=== PATIENT | male | born 1985 | race Caucasian/White ===

== ENCOUNTER 2021-07-22 15:30 | Emergency (ER) | payer OTHER ==
[2021-07-22 15:56] VITALS: BP 117/80; PULSE 67; TEMP 98.4; BMI 25.7
[2021-07-24 19:06] LABS: SARS-CoV-2 NAA Detected (Not Detected)
== END 2021-07-22 17:44 | disposition home or self-care (01) ==
LOC: JER 15:30
DX: U07.1 COVID-19 (principal); R05.1 Acute cough; R09.81 Nasal congestion
CPT/HCPCS: 87804; 99283-25; C9803; U0003; U0005

== ENCOUNTER 2021-08-11 09:23 | Emergency (ER) | payer OTHER ==
[2021-08-11 09:41] VITALS: TEMP 97.6; BMI 25.7
[2021-08-11 11:48] LABS: BASO % 0.6 % (0-2.0); EOS % 1.9 % (0-4.5); HEMATOCRIT 42.5 % (35.4-49); HEMOGLOBIN 14.4 GM/dL (11.7-16.9); MCHC 33.8 g/dl (32.0-35.9); MEAN PLT VOLUME 8.1 fl (7.5-11.1); NEUT % 64.5 % (42.8-82.8); PLATELET COUNT 172 10^3/uL (134-434); RBC 5.31 M/mm3 (4.00-5.60); RDW 12.9 % (11.9-15.9); WHITE BLOOD COUNT 4.8 K/mm3 (4.0-10.0)
[2021-08-11 12:02] LABS: CHLORIDE 105 mmol/L (98-107); SODIUM 140 mmol/L (136-145)
[2021-08-11 12:04] LABS: ALBUMIN 4.3 g/dl (3.4-5.0); ANION GAP 6 MMOL/L (8-16); BLOOD UREA NITROGEN 12.6 mg/dL (7-18); CALCIUM 9.6 mg/dL (8.5-10.1); CO2 29 mmol/L (21-32)
[2021-08-11 12:05] LABS: GLUCOSE,RANDOM 98 mg/dL (74-106)
[2021-08-11 12:07] LABS: CREATININE 1.1 mg/dL (0.55-1.3)
[2021-08-11 12:08] LABS: SGOT/AST 13 U/L (15-37); SGPT/ALT 24 U/L (13-61)
[2021-08-11 12:09] LABS: BILIRUBIN,TOTAL 0.3 mg/dL (0.2-1); TOT PROT 7.6 g/dl (6.4-8.2)
[2021-08-11 12:10] LABS: ALK PHOS 70 U/L (45-117)
[2021-08-11 12:29] VITALS: BP 120/72; PULSE 65
== END 2021-08-11 12:28 | disposition home or self-care (01) ==
LOC: JER 09:23
DX: R07.9 Chest pain, unspecified (principal)
CPT/HCPCS: 36415; 80053; 84484; 85025; 93005; 93010; 99284-25

== ENCOUNTER 2021-12-20 13:20 | Emergency (ER) | payer OTHER ==
[2021-12-20 14:04] VITALS: BP 120/80; PULSE 67; TEMP 98.1; BMI 25.7
[2021-12-20 17:17] LABS: BASO % 0.7 % (0-2.0); EOS % 2.5 % (0-4.5); HEMATOCRIT 39.7 % (35.4-49); HEMOGLOBIN 13.5 GM/dL (11.7-16.9); LYMPH % 28.2 % (8-40); MCH 27.7 pg (25.7-33.7); MCHC 34.1 g/dl (32.0-35.9); MEAN CELL VOLUME 81.3 fl (80-96); MEAN PLT VOLUME 8.2 fl (7.5-11.1); NEUT % 63.6 % (42.8-82.8); PLATELET COUNT 185 10^3/uL (134-434); RBC 4.88 M/mm3 (4.00-5.60); RDW 13.3 % (11.9-15.9); WHITE BLOOD COUNT 5.6 K/mm3 (4.0-10.0)
[2021-12-20 19:07] LABS: CALCIUM 8.6 mg/dL (8.5-10.1)
[2021-12-20 19:08] LABS: ALBUMIN 4.1 g/dl (3.4-5.0); BLOOD UREA NITROGEN 18.6 mg/dL (7-18)
[2021-12-20 19:11] LABS: CREATININE 1.1 mg/dL (0.55-1.3)
[2021-12-20 19:12] LABS: BILIRUBIN,TOTAL 0.3 mg/dL (0.2-1); TOT PROT 7.2 g/dl (6.4-8.2)
== END 2021-12-20 19:53 | disposition home or self-care (01) ==
LOC: JER 13:20
DX: R00.2 Palpitations (principal)
CPT/HCPCS: 36415; 80053; 84443; 85025; 93005; 93010; 99284-25